=== PATIENT | male | born 1945 | race Caucasian/White ===

== ENCOUNTER 2023-10-31 06:09 | Inpatient (IN) | payer MEDICARE, OTHER, SELFPAY ==
--- NOTE | 2023-10-02 11:24 | CM ---
Addendum entered by Eden Reeves 10/29/23 06:59:
VN referral completed and sent to [facility] through [employer] with request for start of care on 11/02. Confirmation received of their ability to accept referral. car clerk pullman to fax discharge instructions to [facility] when complete;
fax: [phone].
Addendum entered by Eden Reeves 10/18/23 08:22:
Spoke again with patient.; he states that his PCP said he needs VN services after surgery, He now states that he has had services through [facility] and would like to use them again.
Original Note:
Patient is scheduled for an elective R THR on 10/31/23. Spoke with patient and his son, Thomas, prior to surgery via telephone. Introduced role of Orthopedic Navigator. Patient reports that he lives with his in a split level home. There is one
step to enter and then either four steps down or five steps up. He currently requires assistance with putting his socks on but otherwise functions independently. He uses a rolling walker. He also has a grabber, long handled shoe horn, rollator, cane
and raised toilet seat. He has had VN services. PCP is Ros Belle.
Discussed orthopedic program and post surgical plans. Reviewed anticipated length of stay and that goal is for him to return home at discharge. Also reviewed outpatient PT. Patient is in agreement with tentative plan and will go directly to
outpatient PT. He will have support from his and son (who lives a mile away) when he goes home.
Patient will complete online education.
Plan: Orthopedic Navigator will remain available to assist with the care of patient and will reassess discharge needs after surgery.
[2023-10-23 08:32] VITALS: BMI 26.9
[2023-10-23 09:05] LABS: Hematocrit 31.3 % (39.0-52.0); Hemoglobin 10.9 g/dL (13.0-18.0); Mean Corp Hgb Conc. 34.8 g/dL (33.0-37.0); Mean Corpuscular Hgb 38.4 pg (27.0-31.0); Mean Corpuscular Volume 110.2 fL (80.0-94.0); Mean Platelet Volume 11.2 fL (7.4-10.4); Platelet Count 210 10^3/uL (130-400); Red Blood Cell Count 2.84 10^6/uL (4.70-6.10); Red Cell Dist. Width 14.2 % (11.5-14.5); White Blood Cell Count 5.6 10^3/uL (4.8-10.8)
[2023-10-23 09:17] LABS: Sodium 138 mmol/L (135-145)
[2023-10-23 09:18] LABS: ALT (SGPT) 14 U/L (0-50); AST (SGOT) 22 U/L (17-59); Albumin 4.3 g/dl (3.5-5.0); Alkaline Phosphatase 83 U/L (38-126); Blood Urea Nitrogen 22 mg/dl (9-20); Calcium 9.2 mg/dl (8.4-10.2); Carbon Dioxide 30 mmol/L (22-30); Chloride 104 mmol/L (98-107); Estimated Creatinine Clearance 56 ml/min; Glucose 103 mg/dl (70-99); Potassium 4.5 mmol/L (3.5-5.1); Total Bilirubin 0.6 mg/dl (0.2-1.3); eGFR > 60.00
[2023-10-23 10:20] LABS: Glycohemoglobin (HgbA1c) 5.6 % (4.0-5.6)
[2023-10-23 15:20] VITALS: BMI 26.9
[2023-10-31] VITALS (28 sets, daily range): BP systolic 85–139; BP diastolic 42–76; PULSE 79; O2SAT 94
[2023-10-31] MEDS: BACTROBAN NASAL 1 GRAM NASAL (07:48)
[2023-10-31] MEDS: NORMOSOL-R 1000 IV ×2 (07:49→10:07)
[2023-10-31] MEDS: TYLENOL 650 MG PO ×3 (07:56→20:06)
[2023-10-31] MEDS: CELEBREX 200 MG PO (07:58)
[2023-10-31] MEDS: VANCOCIN 200 IV ×2 (07:58)
[2023-10-31] MEDS: ROXICODONE 5 MG PO ×2 (10:21→14:59)
--- NOTE | 2023-10-31 11:26 | PTCARENOTE ---
Pt received from PACU. Report received from Mary. Pt AAOx3, on 2L NC, R hip incision CDI. Soft lump noted at top of incision site. per PACU nurse, site has looked the same since pt came out of OR. Pt with TEDs/foot pumps on. pt resting comfortably
in bed.
[2023-10-31] MEDS: TYLENOL PO (11:32)
[2023-10-31] MEDS: DELTASONE 40 MG PO (11:32)
[2023-10-31] MEDS: NEURONTIN 200 MG PO ×3 (11:32→22:19)
--- NOTE | 2023-10-31 13:52 | CM ---
Reviewed chart and met patient in room with PA present. Patient admitted as planned for elective R THR. Confirmed information previously obtained for assessment. Also discussed discharge plans. The plan is for patient to return home at discharge.
He will have support from his and son who lives nearby. Reviewed VN services including start of care (tentatively 11/02), services to be ordered (PT, OT,VN referral was completed and sent to [facility] with request for start of care on 11/02.
Confirmation received of their ability to accept case. branch library clerk [facility] at FAX: [phone].
when complete.
Patient will use [facility]'s pharmacy for discharge prescriptions.
--- NOTE | 2023-10-31 14:03 | W.PN.ORTHO ---
Today's Communication / Plan
-
D/c when clinically stable.
Assessment
.
Distal Motor Intact: Yes
Dressing:
Clean, dry and intact. Small, palpable, soft, non-discolored mass towards proximal end of incision (? hematoma) - picture from RN sent to surgeon. Will monitor for now. Non-bothersome per pt.
Assessment:
R hip OA s/p Doroteo SOTO w/ Dr Lorenzo 10/31/23
DVT prophylaxis - ASA 81 mg PO BID, b/l venous foot pumps
HTN - + parameters - monitor BP
Coronary artery disease, status post CABG x5 06/04/2023
Left carotid artery stenosis, status post left carotid endarterectomy 08/14/2023
Incomplete right bundle branch block
- Monitor on tele
- ASA continued w/o interruption; increase to BID dosing x4 weeks for joint prophylaxis
- Plavix held 1 week pre-op (OK per CT surgery and vascular); will be resumed POD 1 given recent CV hx
- Consider cardio consult given recent surgeries
COPD per records
COVID-19 pneumonia 09/2021
Post-COVID chronic hypoxemic respiratory failure, requiring 1 liter of supplemental oxygen at bedtime
- Monitor O2 on continuous pulse ox and wean O2 as tolerated
- IS
- Prednisone taper
- Neb tx prn for SOB
- Resume supplemental O2 HS
Peripheral neuropathy - increase Gabapentin to accommodate for post-surgical pain
Post-operative anemia - H&H in AM
MRSA positive nasal screen 08/14/2023 - add IV Vanco in addition to IV Ancef for joint prophylaxis
- Started on nasal Mupirocin pre-op; will advise he continue this for 2 weeks post-op as incision is healing
HLD
Lumbar stenosis
Hypothyroidism
Recent right medial knee wound, treated by wound care
History of tobacco abuse
Daily alcohol - 1 beer reported daily
Plan
.
Surgery / Date: Doroteo pandya/ Dr Lorenzo 10/31/23
DVT Prophylaxis: Aspirin (81 mg PO BID )
Activity:
Out of bed.
PT/OT
Discharge Plan: Home w/ VN
Subjective
.
.:
Patient resting comfortably in his chair.
Appears comfortable. Voices no acute complaints.
On 1L supplemental O2 - will wean as tolerated.
Vital Signs and Labs
.
Vital Signs and Labs:
Lab Results
10/23/23 08:15
10/23/23 08:15
Temp Pulse Resp BP Pulse Ox
98.1 F 77 18 139/58 95
10/31/23 07:39 10/31/23 07:39 10/31/23 07:39 10/31/23 07:39 10/31/23 07:39
Physical Exam
-
HEENT: No pallor, cyanosis, or jaundice. Throat clear.
NECK: Supple. No JVD.
RESPIRATORY: Lungs clear to auscultation.
CVS: S1, S2 normal. RRR.�
ABDOMEN: Soft, non-tender. No distension.
EXTREMITIES: Strength equal, no calf pain with palpation/dorsiflexion. Calves soft.
PROPOSAL REVIEW ANALYST: AOx3. No focal deficits. nuclear station operator grossly intact
[2023-10-31] MEDS: ANCEF 5 IV (17:38)
[2023-10-31] MEDS: COLACE 100 MG PO (20:01)
[2023-10-31] MEDS: SENOKOT 17.1999999999999993 MG PO (20:01)
[2023-10-31] MEDS: LOPRESSOR 12.5 MG PO (20:05)
[2023-10-31] MEDS: LOW STRENGTH ASPIRIN 81 MG PO (20:06)
[2023-10-31] MEDS: BACTROBAN 2% OINTMENT 1 APPLIC NASAL (22:19)
[2023-10-31] MEDS: LIPITOR 80 MG PO (22:19)
[2023-11-01] MEDS: TYLENOL 650 MG PO ×2 (00:03→08:33)
[2023-11-01] MEDS: ANCEF 5 IV (00:03)
[2023-11-01 03:52] VITALS: BP 98/61
[2023-11-01] MEDS: TYLENOL PO ×2 (04:14→11:16)
[2023-11-01] MEDS: SYNTHROID 75 MCG PO (06:01)
[2023-11-01 06:12] LABS: Hematocrit 22.9 % (39.0-52.0); Hemoglobin 8.3 g/dL (13.0-18.0)
--- NOTE | 2023-11-01 06:30 | PTCARENOTE ---
Patient was unable to void in urinal while laying in bed, was able to walk to bathroom with assist. voided 50mls of clear yellow urine. stated he wanted to void again after breakfast. Patient is currently sitting up in the chair ordering breakfast.
[2023-11-01 08:21] VITALS: BP 123/48
[2023-11-01] MEDS: NEURONTIN 200 MG PO (08:30)
[2023-11-01] MEDS: LOW STRENGTH ASPIRIN 81 MG PO (08:30)
[2023-11-01] MEDS: DELTASONE 40 MG PO (08:30)
[2023-11-01] MEDS: SENOKOT 17.1999999999999993 MG PO (08:32)
[2023-11-01] MEDS: COLACE 100 MG PO (08:33)
[2023-11-01] MEDS: LOPRESSOR PO (08:34)
[2023-11-01] MEDS: BACTROBAN 2% OINTMENT 2 APPLIC NASAL (08:35)
[2023-11-01] MEDS: FLOMAX 0.400000000000000022 MG PO (08:46)
--- NOTE | 2023-11-01 08:57 | CM ---
Addendum entered by ASHLEY Dooley 11/01/23 15:02:
Met son in room with patient and reviewed that RN will do lab work on Sunday and that if problems occur with voiding that they can call Dr. Han office.
Addendum entered by ASHLEY Dooley 11/01/23 14:16:
updated referral to [facility] and spoke to RN about added lab and that patient did not want osei placed and to have Rn at home to know about his voiding issues.
Addendum entered by ASHLEY Dooley 11/01/23 13:56:
[facility]
Original Note:
Reviewed chart and held rounds with PT, OT and RN. Patient admitted as planned for elective R THR. Confirmed information previously obtained for assessment. Met with patient sitting up in room. The plan is for patient to return home at discharge.
He will have support from his and son who lives nearby. Reviewed VN services including start of care (tentatively 11/02), services to be ordered (PT, OT,VN referral was completed and sent to [facility] with request for start of care on 11/02.
Confirmation received of their ability to accept case. material clerk to fax discharge instructions to [facility] at FAX: [phone] when complete. Patient reports he wants son to be here when nurse goes over discharge instructions.
Patient will use [facility]'s pharmacy for discharge prescriptions.
--- NOTE | 2023-11-01 09:48 | W.PN.ORTHO ---
Today's Communication / Plan
-
Await PT and OT recs.
D/c later today if remaining clinically stable.
Assessment
.
Distal Motor Intact: Yes
Dressing:
Clean, dry and intact. Significant post-surgical soft tissue swelling noted around R hip - NTTP. Ice provided and strongly encouraged.
Assessment:
R hip OA s/p R BRITTANY w/ Dr Lorenzo 10/31/23
DVT prophylaxis - ASA 81 mg PO BID, b/l venous foot pumps
Urinary retention - required straight cath x1 - add Flomax
- Monitor prior to d/c
- May need osei cath and voiding trial w/ urology if continues
HTN - + parameters - BPs stable
Coronary artery disease, status post CABG x5 06/04/2023
Left carotid artery stenosis, status post left carotid endarterectomy 08/14/2023
Incomplete right bundle branch block
- Maintaining NSR on tele w/ occ prolonged QT
- ASA continued w/o interruption; increase to BID dosing x4 weeks for joint prophylaxis
- Plavix held 1 week pre-op (OK per CT surgery and vascular); resumed POD 1 given recent CV hx
- Consider cardio consult given recent surgeries
COPD per records
COVID-19 pneumonia 09/2021
Post-COVID chronic hypoxemic respiratory failure, requiring 1 liter of supplemental oxygen at bedtime
- Continue 1L supplemental O2 prn - O2 sats stable w/ this
- Continue IS upon d/c
- Continue Prednisone taper
- Neb tx prn during admit for SOB
- Resumed supplemental O2 HS
Peripheral neuropathy - increased Gabapentin to accommodate for post-surgical pain
Acute on chronic anemia 2* acute blood loss - H&H 10.9 pre-op -> 8.3 POD 1
- Asymptomatic, hemodynamically stable
- Dressing C/D/I
- Advised iron supplement to boost hgb
- Repeat CBC w/o diff upon d/c w/ results to PCP for further anemia management
MRSA positive nasal screen 08/14/2023 - add IV Vanco in addition to IV Ancef for joint prophylaxis
- Started on nasal Mupirocin pre-op; will advise he continue this for 2 weeks post-op as incision is healing
HLD
Lumbar stenosis
Hypothyroidism
Recent right medial knee wound, treated by wound care
History of tobacco abuse
Daily alcohol - 1 beer reported daily
Plan
.
Surgery / Date: R BRITTANY w/ Dr Lorenzo 10/31/23
DVT Prophylaxis: Aspirin (81 mg PO BID )
Activity:
Out of bed.
PT/OT
Discharge Plan: Home w/ VN
Subjective
.
.:
Patient resting comfortably in his chair this AM.
R hip pain overall well controlled w/ current pain meds.
Urinary retention overnight requiring straight cath - Flomax provided this AM.
Denies any other new significant complaints.
Eager for possible d/c today.
Vital Signs and Labs
.
Vital Signs and Labs:
Lab Results
11/01/23 05:44
10/23/23 08:15
Temp Pulse Resp BP Pulse Ox
97.9 F 57 18 99/46 94
11/01/23 08:21 11/01/23 08:34 11/01/23 08:21 11/01/23 08:34 11/01/23 08:21
Physical Exam
-
HEENT: No pallor, cyanosis, or jaundice. Throat clear.
NECK: Supple. No JVD.
RESPIRATORY: Lungs clear to auscultation.
CVS: S1, S2 normal. RRR.�
ABDOMEN: Soft, non-tender. No distension.
EXTREMITIES: Post-surgical swelling of R hip noted. Strength equal, no calf pain with palpation/dorsiflexion. Calves soft.
WORLD TRAVEL COUNSELOR: AOx3. No focal deficits. cath lab grossly intact
[2023-11-01] MEDS: PLAVIX 75 MG PO (10:01)
[2023-11-01] MEDS: ROXICODONE 5 MG PO (10:05)
[2023-11-01 10:07] VITALS: BP 130/63; PULSE 59; O2SAT 100
[2023-11-01 12:49] VITALS: BP 120/48
--- NOTE | 2023-11-01 12:57 | W.PN.UPDATE ---
Update Note
Progress Note Update
Patient experiencing acute urinary retention post-surgery.
Was given Flomax this morning but only peeing scant amounts of urine.
Last bladder scan with 400 cc of urine.
Will have RN place osei cath. Will continue Flomax daily (hold if SBP <100).
Pt is on Colace and Senna to avoid constipation.
Did speak to Dr. Han about this patient.
Pt to call Dr. Han' office tomorrow to schedule voiding trial appointment with him early next week.
Will Rx Cefadroxil x1 week for continued joint prophylaxis due to indwelling cath.
Otherwise, all else is well and he is stable for d/c today.
--- NOTE | 2023-11-01 14:18 | W.DS.TRANS ---
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
-
Discharge Instructions:
Sleep Apnea Risk Intermediate
Discharge Diagnosis/Procedures R hip OA s/p R BRITTANY w/ Dr Lorenzo 10/31/23
Diet Other diet
Additional Diets Diabetic carb controlled x1 week for wound
healing/infection prevention; then resume
regular diet.
Activity As tolerated,With Walker
Driving Restrictions Not until seen by your Dr
Bathing Restrictions OK to Shower
Blood Work CBC without diff on 11/05/2023, with
results to primary care for further anemia
management.
Other Services PT,VN,OT
Wound Care Dressing to be removed 1 week post-surgery.
Instructions:
Stand-Alone Forms: Total Hip/Knee Replacement D/C
Changes to Home Medications: Yes
Discharge Medications:
DC Medications w/original date entered in [employer]
atorvastatin 80 mg tablet 80 mg PO HS High Cholesterol 05/18/23
levothyroxine 75 mcg tablet 75 mcg PO 0400 Thyroid 05/18/23
clopidogrel 75 mg tablet 75 mg PO DAILY #30 tabs 06/08/23
metoprolol tartrate 25 mg tablet 12.5 mg PO BID Blood Pressure 10/04/23
Saccharomyces boulardii 250 mg capsule (Florastor) 250 mg PO BID #14 caps 11/01/23
acetaminophen 500 mg tablet (Acetaminophen Extra Strength) 1,000 mg PO Q6H #60 tabs 11/01/23
amlodipine 5 mg tablet 5 mg PO BID Blood Pressure #0 tabs 11/01/23
aspirin 81 mg capsule 81 mg PO BID Blood Clot Prevention/Tx #0 caps 11/01/23
cefadroxil 500 mg capsule 500 mg PO BID #14 caps 11/01/23
docusate sodium 100 mg capsule 100 mg PO BID #30 caps 11/01/23
famotidine 20 mg tablet (Pepcid) 20 mg PO HS #30 tabs 11/01/23
ferrous sulfate 325 mg (65 mg iron) tablet 325 mg PO DAILY #30 tabs 11/01/23
gabapentin 100 mg capsule 200 mg PO TID #30 caps 11/01/23
losartan 50 mg tablet 50 mg PO DAILY Blood Pressure #0 tabs 11/01/23
mupirocin 2 % topical ointment 1 applic intranasal BID #1 tube 11/01/23
ondansetron HCl 4 mg tablet 4 mg PO Q6H PRN nausea and vomiting #30 tabs 11/01/23
oxycodone 5 mg tablet 5 - 10 mg PO Q4H PRN moderate-severe pain #30 tabs 11/01/23
prednisone 10 mg tablet 40 mg PO TAPER #20 tabs 11/01/23
sennosides 8.6 mg tablet (Senna Lax) 17.2 mg PO BID #30 tabs 11/01/23
tamsulosin 0.4 mg capsule 0.4 mg PO DAILY #14 caps 11/01/23
Home Medication Changes
Saccharomyces boulardii 250 mg capsule (Florastor) 250 mg PO BID #14 caps 11/01/23
acetaminophen 500 mg tablet (Acetaminophen Extra Strength) 1,000 mg PO Q6H #60 tabs 11/01/23
aspirin 81 mg capsule 81 mg PO BID Blood Clot Prevention/Tx #0 caps 11/01/23
cefadroxil 500 mg capsule 500 mg PO BID #14 caps 11/01/23
docusate sodium 100 mg capsule 100 mg PO BID #30 caps 11/01/23
famotidine 20 mg tablet (Pepcid) 20 mg PO HS #30 tabs 11/01/23
ferrous sulfate 325 mg (65 mg iron) tablet 325 mg PO DAILY #30 tabs 11/01/23
gabapentin 100 mg capsule 200 mg PO TID #30 caps 11/01/23
mupirocin 2 % topical ointment 1 applic intranasal BID #1 tube 11/01/23
ondansetron HCl 4 mg tablet 4 mg PO Q6H PRN nausea and vomiting #30 tabs 11/01/23
oxycodone 5 mg tablet 5 - 10 mg PO Q4H PRN moderate-severe pain #30 tabs 11/01/23
prednisone 10 mg tablet 40 mg PO TAPER #20 tabs 11/01/23
sennosides 8.6 mg tablet (Senna Lax) 17.2 mg PO BID #30 tabs 11/01/23
tamsulosin 0.4 mg capsule 0.4 mg PO DAILY #14 caps 11/01/23
Pending Results: No
--- NOTE | 2023-11-01 14:20 | W.PN.UPDATE ---
Update Note
Progress Note Update
Pt was set to be osei cath due to urinary retention determined through PVRs.
I did tell the patient earlier today that if he was still retaining, osei cath would be recommended. Pt voiced no concerns at that point in time.
Decision to osei cath was determined after Flomax, encouraged PO hydration, and frequent ambulation were found not to be effective.
Urology, Dr. Han, through [facility] also agreed with osei cath at this time.
Prior to RN placing osei cath, the patient stated refusal. Stated it was 'bullshit' that he needed one. Threatened to leave AMA.
Last urination totaled 175 cc. PVR demonstrating 350 cc.
I promptly called the patient after PVR and explained that urinary retention can lead to UTIs, sepsis, and acute kidney failure.
I explained to him that I did not agree with his decision, especially after talking over his case with urology.
I also explained that a osei in this case would be temporary and that urology would see him as early as next week in their office for a voiding trial.
Despite my best efforts, the patient still continued to refuse.
I did encourage he take Flomax daily as I prescribed and continue to ambulate frequently.
I did advise him that he should go to the ER should he not urinate within 6 hours or if he experiences pelvic pain or discomfort.
We will make home care services aware of this situation for further follow-up.
Pt to be d/c today with services
== END 2023-11-01 15:01 | disposition home health service (06) | DRG 470 ==
LOC: 2 SOUTH 06:09
PROVIDERS: ADMITTING PHYSICIAN Orthopaedic Surgery; FAMILY PHYSICIAN Internal Medicine; REFERRING PHYSICIAN Physician Assistant
PROC: 0SR903A Replacement of Right Hip Joint with Ceramic Synthetic Substitute, Uncemented, Open Approach (ICD-10-PCS; 2023-10-31)
DX: M16.11 Unilateral primary osteoarthritis, right hip (principal); D62 Acute posthemorrhagic anemia; I10 Essential (primary) hypertension; G62.9 Polyneuropathy, unspecified; E78.5 Hyperlipidemia, unspecified; E03.9 Hypothyroidism, unspecified; Z87.891 Personal history of nicotine dependence; R33.9 Retention of urine, unspecified; J44.9 Chronic obstructive pulmonary disease, unspecified
CPT/HCPCS: 36415; 73502; 80053; 83036; 85014; 85018; 85027; 86850; 86900; 86901; 97110; 97116; 97162; 97166; 97530; 97535; C1776

== ENCOUNTER → 2023-11-20 12:46 | Outpatient (REF) | payer MEDICARE, OTHER, SELFPAY ==
[2023-11-20 14:11] LABS: Erythrocyte Sed Rate 1 mm/hour (0-20)
[2023-11-20 14:38] LABS: % Basophils 0.2 % (0-2); % Eosinophils 1.4 % (0-6); % Immature Granulocytes 0.2 % (0-0.5); % Lymphocytes 30.1 % (20.5-51.1); % Monocytes 7.4 % (1.7-9.3); % Neutrophils 60.7 % (42.2-75.2); Absolute Eosinophils 0.1 10^3/uL (0-0.7); Absolute Lymphocytes 1.5 10^3/uL (1.2-3.4); Absolute Monocytes 0.4 10^3/uL (0.1-0.6); Absolute Neutrophils 3.1 10^3/uL (1.4-6.5); Hemoglobin 8.4 g/dL (13.0-18.0); Mean Platelet Volume 10.5 fL (7.4-10.4); Nucleated Red Blood Cells % 0 % (-); Platelet Count 303 10^3/uL (130-400); White Blood Cell Count 5.1 10^3/uL (4.8-10.8)
[2023-11-20 15:22] LABS: Hematocrit 25.7 % (39.0-52.0); Mean Corp Hgb Conc. 33.1 g/dL (33.0-37.0); Mean Corpuscular Hgb 33.7 pg (27.0-31.0); Red Blood Cell Count 2.52 10^6/uL (4.70-6.10); Red Cell Dist. Width 16.7 % (11.5-14.5)
== END ==
LOC: REG 12:46
PROVIDERS: ATTENDING PHYSICIAN Physician Assistant Surgical; FAMILY PHYSICIAN Internal Medicine
DX: Z96.641 Presence of right artificial hip joint (principal)
CPT/HCPCS: 36415; 85025; 85652; 86140

== ENCOUNTER 2024-02-06 07:19 | Inpatient (IN) | payer MEDICARE, OTHER, SELFPAY ==
--- NOTE | 2024-01-16 10:08 | CM ---
Patient is scheduled for an elective L THR on 02/06/24. Spoke with patient prior to surgery via telephone. Patient had a R THR at in October 2023. Reintroduced role of Orthopedic Navigator. Patient reports that he lives with his in a split
level home. There is one step to enter and then either four steps down or five steps up. He currently functions independently and uses a rolling walker (he has 3 walkers). He also has a hip kit, rollator, cane and raised toilet seat. He had VN
services after his prior THR. PCP is Ros Belle.
Discussed orthopedic program and post surgical plans. Reviewed anticipated length of stay and that goal is for him to return home at discharge. Also reviewed outpatient PT. Patient is in agreement with tentative plan but feels he needs VN services
again and wants VN. He will have support from his and son (who lives a mile away) when he goes home.
Patient will complete online education.
Plan: Orthopedic Navigator will remain available to assist with the care of patient and will reassess discharge needs after surgery.
[2024-01-21 07:40] VITALS: BMI 27.1
--- NOTE | 2024-01-21 08:21 | HPS.HSE ---
Family Physician
-
Family Physician: Ros Belle
Chief Complaint
-
Advanced primary osteoarthritis of the left hip.
History of Present Illness
The patient is a 78-year-old male presenting today for advanced primary osteoarthritis of the left hip. The patient previously underwent a right total hip arthroplasty in October [address] Coleman Lorenzo secondary to his
osteoarthritis. He returns to [facility] today with reports of significant left hip pain and instability due to this diagnosis. He notes that his current left hip symptoms are greatly interfering with his activities of daily living and are
overall impacting his quality of life. He has tried and failed multiple conservative treatment measures in the past for his left hip symptoms. These conservative treatment measures include activity modification, self-directed therapeutic exercises,
physical therapy, medical management with Tylenol and Oxycodone as needed, and the application of ice and/or heat. Recent x-ray findings of the left hip demonstrated [id number] osteoarthritis. He was determined to be in need of a left total hip
arthroplasty. He denies any current complaints today such as chest pain, shortness of breath, palpitations, nausea, vomiting, diarrhea, lightheadedness, dizziness, cough, sore throat, or fever.
Medical History
Past Medical History
Past Medical History: Reports Other
Additional Past Medical History:
1. Osteoarthritis, status post right total hip arthroplasty, 10/2023, by Dr. Coleman Loernzo.
2. Hypertension.
3. Hyperlipidemia.
4. Coronary artery disease, status post CABG x5 06/04/2023; on dual anti-platelet therapy.
5. Left carotid artery stenosis, status post left carotid endarterectomy 08/14/2023.
6. Incomplete right bundle branch block.
7. Sinus bradycardia secondary to Metoprolol, asymptomatic.
8. COPD per records.
9. COVID-19 pneumonia 09/2021.
10. Post-COVID chronic hypoxemic respiratory failure, requiring previous supplemental oxygen therapy.
11. Peripheral neuropathy.
12. Lumbar stenosis.
13. Hypothyroidism.
14. Urinary retention after right total hip arthroplasty, improving with Flomax.
15. Previous right medial knee wound, treated by wound care.
16. Mild post-operative anemia; pre-operative anemia panel unremarkable.
17. MRSA positive nasal screen 08/14/2023.
18. History of tobacco abuse.
19. Daily alcohol.
Past Surgical History: Reports Other
Additional Past Surgical History:
1. Right total hip arthroplasty, 10/2023, by Dr. Coleman Lorenzo.
2. CABG x5.
3. Left carotid endarterectomy.
4. Cardiac catheterization.
5. Transesophageal echocardiogram.
6. Right cataract extraction.
7. Multiple dental extractions.
8. Colonoscopy x2.
Social History
Tobacco: Former Smoker (He is a former 1 and a 1/2 pack per day cigarette smoker who quit tobacco products altogether 5 years ago.)
Alcohol: Daily (He reports, on average, consuming 1 beer daily. )
Personal:
Living: Other (The patient lives in a 3-story home with his . His son, Thomas, apparently lives around the corner from him and is able to provide assistance post-surgery if needed. )
Family History
Family History: Not pertinent
Allergies / Home Medications
Allergy/Medication List:
Home medications:
1. Amlodipine 5 mg p.o. twice a day.
2. Aspirin 81 mg p.o. at bedtime.
3. Atorvastatin 80 mg p.o. at bedtime.
4. Clopidogrel 75 mg p.o. daily.
5. Levothyroxine 75 mcg p.o. daily.
6. Losartan 50 mg p.o. daily.
7. Metoprolol Tartrate 12.5 mg p.o. twice a day.
Allergies: No known allergies.
Review of Systems
-
A 12 point ROS was completed and negative except as noted: Yes
Physical Exam
Vital Signs
Blood pressure 163/73 in the setting of pain. Heart rate 53. Respirations 18. Pulse ox 96% on room air.
Height 5 feet, 6 inches. Weight 76.2 kg. BMI 27.1.
Physical Exam
General: Well Developed, Well Nourished and No Apparent Distress
HEENT: NormoCephalic, Moist mucous membranes, Atraumatic and PERRLA
Respiratory: Clear
Cardiac: Bradycardia
GI: Soft, Non Tender and Non Distended
Musculoskeletal: Other (Left hip: 0 internal, 0 external with pain. Right hip: good passive range of motion. The patient currently ambulates with a rolling walker. )
Skin: Warm and Dry
Neuro: AO x 3 and Nonfocal/grossly intact
Laboratory Results
-
DIAGNOSTIC STUDIES as of 01/21/2024: White blood cell count 6.6. Hemoglobin 11.0. Platelet count 230,000. Sodium 138. Potassium 4.5. BUN 22. Creatinine 0.9. Glucose 95. Hemoglobin A1c 5.5. Calcium 9.5. AST 21. ALT 13. Albumin 4.1. Iron 79. TIBC 286.
Ferritin 135. Vitamin B12 260. Folate 5.3. Blood type A positive.
EKG provided previously by Cardiology.
Transesophageal echocardiogram 06/04/2023: Ejection fraction is 55-60 percent. Mildly sclerotic aortic valve with no stenosis or regurgitation. Grossly normal mitral and tricuspid valves. Severely diseased thoracic aorta with grade 4 disease in the
arch and descending. Significant calcified plaque is seen in the posterior wall of the ascending aorta at the level of the right pulmonary artery takeoff.
Impression/Plan
-
CLEARANCES:
1. Primary medical: Dr. Ros Belle, deferred from prior right total hip arthroplasty.
Primary medical phone number: [phone].
2. Cardiology: Dr. Pramod Aburto, deferred from prior right total hip arthroplasty.
3. Vascular: Dr. John Ferrell, deferred from prior right total hip arthroplasty.
4. Dental waived.
IMPRESSION/PLAN:
1. Advanced primary osteoarthritis of the left hip in need of a left total hip arthroplasty by Dr. Coleman Lorenzo on 02/06/2024. The benefits and risks of the procedure have been explained to the patient. The patient understands these risks and
wishes to proceed.
2. DVT prophylaxis: Aspirin 81 mg p.o. twice a day for 4 weeks post surgery with bilateral venous compression devices. Plasma flow devices were highly encouraged to be used in the outpatient setting upon discharge.
3. Recent CABG and left carotid endarterectomy: The patient was made aware to hold his home Plavix 1 week prior to his upcoming procedure. This was agreed upon between both Cardiology and Vascular before his prior right total hip arthroplasty. He
will resume his Plavix on post-operative day 2 or sooner if his surgeon advises.
4. Post-COVID chronic hypoxemic respiratory failure, requiring previous supplemental oxygen therapy: We will monitor his oxygen saturations closely during admission. He will also be started on incentive spirometry post-procedure. Thankfully, he did
do rather well after his most recent CABG, left carotid endarterectomy, and right total hip arthroplasty. Pulmonary will be consulted for further evaluation if necessary.
5. Urinary retention after right total hip arthroplasty: The patient was able to urinate efficiently after discharge with the addition of Flomax. He reportedly still has 10 tablets left of this medication at home. He was advised to start Flomax 3
nights prior to his procedure. Flomax will be continued during admission.
6. Mild post-operative anemia: A pre-operative anemia panel demonstrated normal iron, vitamin B12, and folate stores. Renal function was also noted to be stable. We will monitor his hemoglobin closely during admission.
7. Pain management: We will include Tylenol, a Prednisone taper, Gabapentin 200 mg p.o. 3 times a day, and Oxycodone as needed for moderate to severe post-operative pain. Dilaudid may be a potential substitute for Oxycodone if Oxycodone is
ineffective for pain control. He has, reportedly, tolerated Dilaudid well previously.
8. MRSA-positive nasal screen 08/14/2023: We will include IV Vancomycin in addition to IV Ancef for joint prophylaxis. He was started on nasal Mupirocin pre-operatively. He will be advised to continue this for 2 weeks post-operatively as his
incision heals.
Patient's home phone number: [phone].
Patient's cell phone number: [phone].
Patient's contact (Suzanne Barnes - Spouse): [phone].
[2024-01-21 08:47] LABS: Hematocrit 33.7 % (39.0-52.0); Mean Corp Hgb Conc. 32.6 g/dL (33.0-37.0); Mean Corpuscular Hgb 33.7 pg (27.0-31.0); Mean Corpuscular Volume 103.4 fL (80.0-94.0); Mean Platelet Volume 11.1 fL (7.4-10.4); Platelet Count 230 10^3/uL (130-400); Red Blood Cell Count 3.26 10^6/uL (4.70-6.10); White Blood Cell Count 6.6 10^3/uL (4.8-10.8)
[2024-01-21 09:18] LABS: ALT (SGPT) 13 U/L (0-50); AST (SGOT) 21 U/L (17-59); Albumin 4.1 g/dl (3.5-5.0); Alkaline Phosphatase 75 U/L (38-126); Blood Urea Nitrogen 22 mg/dl (9-20); Calcium 9.5 mg/dl (8.4-10.2); Carbon Dioxide 29 mmol/L (22-30); Chloride 105 mmol/L (98-107); Estimated Creatinine Clearance 62 ml/min; Glucose 95 mg/dl (70-99); Potassium 4.5 mmol/L (3.5-5.1); Sodium 138 mmol/L (135-145); Total Bilirubin 0.6 mg/dl (0.2-1.3); eGFR > 60.00
[2024-01-21 09:30] LABS: Glycohemoglobin (HgbA1c) 5.5 % (4.0-5.6)
[2024-01-21 14:49] VITALS: BMI 27.1
[2024-01-21 15:09] LABS: Iron 79 ug/dl (49-181)
[2024-01-21 15:18] LABS: Percent Saturation 27 % (20-50); Total Iron Binding Capacity 286 ug/dl (261-462)
[2024-01-21 16:57] LABS: Folate 5.3 ng/ml (2.76-20); Vitamin B12 260 pg/ml (239-931)
[2024-02-06] VITALS (20 sets, daily range): BP systolic 67–153; BP diastolic 46–74; PULSE 77–81; O2SAT 98–100; BMI 27.1
[2024-02-06] MEDS: CELEBREX 200 MG PO (07:48)
[2024-02-06] MEDS: BACTROBAN NASAL 1 GRAM NASAL (07:48)
[2024-02-06] MEDS: TYLENOL 650 MG PO ×5 (07:48→23:05)
[2024-02-06] MEDS: NORMOSOL-R 1000 IV ×2 (07:51→11:20)
[2024-02-06] MEDS: VANCOCIN 200 IV ×2 (08:54→21:26)
[2024-02-06] MEDS: ROXICODONE 5 MG PO (11:26)
[2024-02-06] MEDS: NEURONTIN 200 MG PO ×3 (13:28→21:38)
--- NOTE | 2024-02-06 14:20 | PTCARENOTE ---
Pt arrived to 2S in bed. L hip aquacel C/D/I. B/L le neurovascular assessment WDL. Telemetry applied. IVF infusing per order. Bed locked and in the lowest position, safety maintained. Oriented to room and call maher.
--- NOTE | 2024-02-06 14:47 | W.PN.UPDATE ---
Update Note
Progress Note Update
L hip OA s/p L BRITTANY w/ Dr Lorenzo 02/06/24
- s/p R BRITTANY, 10/2023, by Dr Lorenzo
DVT prophylaxis - ASA 81 mg PO BID, b/l venous foot pumps
HTN - + parameters - monitor BP
Coronary artery disease, status post CABG x5 06/04/2023
Left carotid artery stenosis, status post left carotid endarterectomy 08/14/2023
Incomplete right bundle branch block
Sinus bradycardia secondary to Metoprolol, asymptomatic
- Monitor on tele
- ASA continued w/o interruption; increase to BID dosing x4 weeks for joint prophylaxis
- Plavix held 1 week pre-op (OK previously per CT surgery and vascular); will be resumed POD 2 if hemodynamically stable
- Consider cardio consult given recent surgeries
COPD per records
COVID-19 pneumonia 09/2021
Post-COVID chronic hypoxemic respiratory failure, requiring previous supplemental oxygen therapy at bedtime
- Monitor O2
- IS
- Prednisone taper
- DuoNeb tx prn
Peripheral neuropathy - restart Gabapentin (was previously on)
Urinary retention after right total hip arthroplasty, improving with Flomax - monitor voiding
- Did start Flomax 3 nights prior to surgery; continue during admission
- Bladder scan/straight cath prn
Mild post-operative anemia; pre-operative anemia panel unremarkable - non-invasive hgb in AM
MRSA positive nasal screen 08/14/2023 - add IV Vanco in addition to IV Ancef for joint prophylaxis
- Started on nasal Mupirocin pre-op; will advise he continue this for 2 weeks post-op as incision is healing
Daily alcohol - 1 beer reported daily - start Thiamine, Folic acid
HLD
Lumbar stenosis
Hypothyroidism
Recent right medial knee wound, treated by wound care
History of tobacco abuse
Will be Rx Cefadroxil upon d/c. Will be advised to start OTC probiotic while on this medication.
[2024-02-06] MEDS: FOLVITE 0.5 MG PO (15:12)
[2024-02-06] MEDS: FLOMAX 0.400000000000000022 MG PO (15:12)
[2024-02-06] MEDS: VITAMIN B1 100 MG PO (15:12)
[2024-02-06] MEDS: DELTASONE 40 MG PO (15:13)
[2024-02-06] MEDS: ANCEF 5 IV (17:26)
[2024-02-06] MEDS: BACTROBAN 2% OINTMENT 1 APPLIC NASAL (19:31)
[2024-02-06] MEDS: SENOKOT 17.1999999999999993 MG PO (19:37)
[2024-02-06] MEDS: LOPRESSOR 12.5 MG PO (19:37)
[2024-02-06] MEDS: LOW STRENGTH ASPIRIN 81 MG PO (19:37)
[2024-02-06] MEDS: COLACE 100 MG PO (19:39)
[2024-02-06] MEDS: LIPITOR 80 MG PO (21:39)
[2024-02-07] MEDS: ANCEF 5 IV (01:25)
[2024-02-07 03:00] VITALS: BP 118/64
[2024-02-07] MEDS: TYLENOL 650 MG PO ×2 (04:05→09:27)
[2024-02-07] MEDS: SYNTHROID 75 MCG PO (04:05)
[2024-02-07 08:15] VITALS: BP 136/64
[2024-02-07 08:24] VITALS: BP 127/49; BP 136/64; PULSE 74; O2SAT 90
--- NOTE | 2024-02-07 08:40 | CM ---
Addendum entered by Eden Reeves 02/07/24 09:46:
Patient did well in therapy. He has no concerns about going home and has updated his family.
Original Note:
Reviewed chart and held rounds with PT, OT and nursing. Patient admitted as planned for elective L THR. Met with patient at bedside. Confirmed information previously obtained for assessment. Also discussed discharge plans. The plan is for patient to
return home at discharge. He will have support from his and son when he goes home. Reviewed VN services including start of care (tentatively 02/07), services to be ordered (PT, OT, SN) and frequency/duration of services. Options list provided
and PAC data reviewed. Patient selects [facility].
Patient has all needed DME at home.
VN referral was completed and sent to [facility] through [employer] with request for start of care on 02/07. Confirmation received of their ability to accept case. scheduling clerk [facility].

Patient will use [facility] for discharge prescriptions.
[2024-02-07 09:15] VITALS: BP 123/48; PULSE 69
[2024-02-07] MEDS: COLACE 100 MG PO (09:27)
[2024-02-07] MEDS: BACTROBAN 2% OINTMENT 1 APPLIC NASAL (09:27)
[2024-02-07] MEDS: DELTASONE 40 MG PO (09:27)
[2024-02-07] MEDS: FLOMAX 0.400000000000000022 MG PO (09:27)
[2024-02-07] MEDS: SENOKOT 17.1999999999999993 MG PO (09:28)
[2024-02-07] MEDS: LOW STRENGTH ASPIRIN 81 MG PO (09:28)
[2024-02-07] MEDS: FOLVITE 0.5 MG PO (09:28)
[2024-02-07] MEDS: VITAMIN B1 100 MG PO (09:28)
[2024-02-07] MEDS: LOPRESSOR 12.5 MG PO (09:29)
[2024-02-07] MEDS: NEURONTIN 200 MG PO (09:29)
--- NOTE | 2024-02-07 09:53 | W.PN.ORTHO ---
Today's Communication / Plan
-
D/c today since clinically stable, did well w/ both PT and OT.
Assessment
.
Distal Motor Intact: Yes
Dressing:
Clean, dry and intact.
Assessment:
L hip OA s/p L BRITTANY w/ Dr Lorenzo 02/06/24
- s/p R BRITTANY, 10/2023, by Dr Lorenzo
DVT prophylaxis - ASA 81 mg PO BID, b/l venous foot pumps
HTN - + parameters - BPs stable
Coronary artery disease, status post CABG x5 06/04/2023
Left carotid artery stenosis, status post left carotid endarterectomy 08/14/2023
Incomplete right bundle branch block
Sinus bradycardia secondary to Metoprolol, asymptomatic
- Maintaining NSR on tele
- ASA continued w/o interruption; increase to BID dosing x4 weeks for joint prophylaxis
- Plavix held 1 week pre-op (OK previously per CT surgery and vascular); will be resumed POD 2 since hemodynamically stable
COPD per records
COVID-19 pneumonia 09/2021
Post-COVID chronic hypoxemic respiratory failure, requiring previous supplemental oxygen therapy at bedtime
- O2 stable on RA by POD 1
- IS
- Prednisone taper
- DuoNeb tx prn
Peripheral neuropathy - restarted Gabapentin (was previously on)
Urinary retention after right total hip arthroplasty, improving with Flomax - voiding appropriately by POD 1
- Did start Flomax 3 nights prior to surgery; continue during admission
- Bladder scan/straight cath prn
Mild post-operative anemia; pre-operative anemia panel unremarkable - non-invasive hgb stable at 11.1 (previously 11.0).
MRSA positive nasal screen 08/14/2023 - added IV Vanco in addition to IV Ancef for joint prophylaxis
- Started on nasal Mupirocin pre-op; will advise he continue this for 2 weeks post-op as incision is healing
Daily alcohol - 1 beer reported daily - Thiamine, Folic acid during admission
HLD
Lumbar stenosis
Hypothyroidism
Recent right medial knee wound, treated by wound care
History of tobacco abuse
Will be Rx Cefadroxil upon d/c. Will be advised to start OTC probiotic while on this medication.
Plan
.
Surgery / Date: L BRITTANY w/ Dr Lorenzo 02/06/24
DVT Prophylaxis: Aspirin (81 mg PO BID )
Activity:
Out of bed.
PT/OT
Discharge Plan: Home w/ VN
Subjective
.
.:
Patient resting comfortably in his chair this AM.
L hip pain well controlled w/ minimal pain meds.
Denies any new significant complaints.
Eager for potential d/c today.
Vital Signs and Labs
.
Vital Signs and Labs:
Lab Results
01/21/24 07:32
01/21/24 07:32
Temp Pulse Resp BP Pulse Ox
98.0 F 74 16 136/64 89
02/07/24 08:15 02/07/24 08:15 02/07/24 08:15 02/07/24 08:15 02/07/24 08:15
Non-invasive Hgb result: 11.1
Physical Exam
-
HEENT: No pallor, cyanosis, or jaundice. Throat clear.
NECK: Supple. No JVD.
RESPIRATORY: Lungs clear to auscultation.
CVS: S1, S2 normal. RRR.�
ABDOMEN: Soft, non-tender. No distension.
EXTREMITIES: Strength equal, no calf pain with palpation/dorsiflexion. Calves soft.
BRAND LEADER: AOx3. No focal deficits. 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
--- NOTE | 2024-02-07 10:06 | W.DS.TRANS ---
DC Summary - Drafter Electrical
-
Discharge Instructions:
Sleep Apnea Risk Intermediate
Discharge Diagnosis/Procedures L hip OA s/p L BRITTANY w/ Dr Lorenzo 02/06/24
Diet Other diet
Additional Diets Diabetic carb controlled x1 week for wound
healing/infection prevention; then resume
regular diet.
Activity As tolerated,With Walker
Driving Restrictions Not until seen by your Dr
Bathing Restrictions OK to Shower
Other Services PT,VN,OT
Wound Care Dressing to be removed 1 week post-surgery.
Instructions:
Stand-Alone Forms: Total Hip/Knee Replacement D/C
Changes to Home Medications: Yes
Discharge Medications:
DC Medications w/original date entered in [employer]
atorvastatin 80 mg tablet 80 mg PO HS High Cholesterol 05/18/23
levothyroxine 75 mcg tablet 75 mcg PO 0400 Thyroid 05/18/23
clopidogrel 75 mg tablet 75 mg PO DAILY #30 tabs 06/08/23
metoprolol tartrate 25 mg tablet 12.5 mg PO BID Blood Pressure 10/04/23
mupirocin 2 % topical ointment 1 applic intranasal BID #1 tube 01/21/24
Saccharomyces boulardii 250 mg capsule (Florastor) 250 mg PO BID #14 caps 02/07/24
acetaminophen 500 mg tablet (Acetaminophen Extra Strength) 1,000 mg (2 x 500 mg) PO Q6H #60 tabs 02/07/24
amlodipine 5 mg tablet 5 mg PO BID Blood Pressure #0 tabs 02/07/24
aspirin 81 mg capsule 81 mg PO BID Blood Clot Prevention/Tx #60 caps 02/07/24
cefadroxil 500 mg capsule 500 mg PO BID #14 caps 02/07/24
docusate sodium 100 mg capsule 100 mg PO BID #30 caps 02/07/24
gabapentin 100 mg capsule 200 mg (2 x 100 mg) PO TID neuropathic pain #30 caps 02/07/24
losartan 50 mg tablet 50 mg PO DAILY Blood Pressure #0 tabs 02/07/24
ondansetron HCl 4 mg tablet 4 mg PO Q6H PRN nausea and vomiting #30 tabs 02/07/24
oxycodone 5 mg tablet 5 - 10 mg (1 - 2 x 5 mg) PO Q6H PRN moderate-severe pain #30 tabs 02/07/24
prednisone 10 mg tablet 40 mg (4 x 10 mg) PO TAPER #20 tabs 02/07/24
sennosides 8.6 mg tablet (Senna Laxative) 17.2 mg (2 x 8.6 mg) PO BID #30 tabs 02/07/24
Home Medication Changes
Saccharomyces boulardii 250 mg capsule (Florastor) 250 mg PO BID #14 caps 02/07/24
acetaminophen 500 mg tablet (Acetaminophen Extra Strength) 1,000 mg (2 x 500 mg) PO Q6H #60 tabs 02/07/24
aspirin 81 mg capsule 81 mg PO BID Blood Clot Prevention/Tx #60 caps 02/07/24
cefadroxil 500 mg capsule 500 mg PO BID #14 caps 02/07/24
docusate sodium 100 mg capsule 100 mg PO BID #30 caps 02/07/24
gabapentin 100 mg capsule 200 mg (2 x 100 mg) PO TID neuropathic pain #30 caps 02/07/24
ondansetron HCl 4 mg tablet 4 mg PO Q6H PRN nausea and vomiting #30 tabs 02/07/24
oxycodone 5 mg tablet 5 - 10 mg (1 - 2 x 5 mg) PO Q6H PRN moderate-severe pain #30 tabs 02/07/24
prednisone 10 mg tablet 40 mg (4 x 10 mg) PO TAPER #20 tabs 02/07/24
sennosides 8.6 mg tablet (Senna Laxative) 17.2 mg (2 x 8.6 mg) PO BID #30 tabs 02/07/24
Pending Results: No
== END 2024-02-07 11:19 | disposition home health service (06) | DRG 470 ==
LOC: 2 SOUTH 07:19
PROVIDERS: ADMITTING PHYSICIAN Orthopaedic Surgery; FAMILY PHYSICIAN Internal Medicine
PROC: 0SRB03A Replacement of Left Hip Joint with Ceramic Synthetic Substitute, Uncemented, Open Approach (ICD-10-PCS; 2024-02-06)
DX: M16.12 Unilateral primary osteoarthritis, left hip (principal); Z87.891 Personal history of nicotine dependence; I10 Essential (primary) hypertension; Z95.1 Presence of aortocoronary bypass graft; I25.10 Atherosclerotic heart disease of native coronary artery without angina pectoris; J44.9 Chronic obstructive pulmonary disease, unspecified; Z79.82 Long term (current) use of aspirin; G62.9 Polyneuropathy, unspecified
CPT/HCPCS: 36415; 73502; 80053; 82607; 82728; 82746; 83036; 83540; 83550; 85027; 86850; 86900; 86901; 87070; 97110; 97116; 97163; 97166; 97530; 97535; C1713; C1776

== ENCOUNTER → 2024-03-12 10:43 | Outpatient (REF) | payer MEDICARE, OTHER, SELFPAY | LOC: RAD 10:43 | PROVIDERS: ATTENDING PHYSICIAN Surgery Vascular Surgery; FAMILY PHYSICIAN Internal Medicine | DX: I65.22 Occlusion and stenosis of left carotid artery (principal) | CPT/HCPCS: 93880 ==

== ENCOUNTER → 2024-09-09 10:22 | Outpatient (REF) | payer MEDICARE, OTHER, SELFPAY | LOC: RAD 10:22 | PROVIDERS: ATTENDING PHYSICIAN Surgery Vascular Surgery | DX: I25.10 Atherosclerotic heart disease of native coronary artery without angina pectoris (principal) | CPT/HCPCS: 93880 ==